=== PATIENT | female | born 1995 | race Asian ===

== ENCOUNTER 2021-01-30 10:44 | Emergency (ER) | payer OTHER ==
[~2021-01-30] VITALS: Ht 154.9 cm; Wt 47.6 kg
[2021-01-30 12:28] LABS: BASOPHILS 0.4 % (0.0-2.0); EOSINOPHILS 0.9 % (0.0-3.0); HEMOGLOBIN 13.4 gm/dL (12.0-15.0); RDW 13.6 % (10.5-14.5)
[2021-01-30 12:30] LABS: HEMATOCRIT 39.4 % (37.0-47.0); LYMPHOCYTES 20.7 % (24.0-44.0); MCH 32.1 pg (26.0-34.0); MCV 94.3 fL (80.0-100.0); MONOCYTES 7.9 % (1.0-8.0); PLATELET COUNT 332 thou/uL (150-400); POLYS 70.1 % (36.0-66.0); RBC 4.18 mil/uL (4.20-5.00); WBC 8.6 thou/uL (4.0-11.0)
[2021-01-30 12:56] LABS: CREATININE 0.6 mg/dL (0.6-1.0)
[2021-01-30 12:57] LABS: URINE BILIRUBIN NEGATIVE (Negative); URINE BLOOD 1+ (Negative); URINE CLARITY CLEAR; URINE COLOR YELLOW; URINE GLUCOSE-RANDOM* NEGATIVE (Negative); URINE KETONES NEGATIVE (Negative); URINE LEUKOCYTES-REFLEX TRACE (Negative); URINE NITRITE-REFLEX NEGATIVE (Negative); URINE PROTEIN (DIPSTICK) NEGATIVE (Negative); URINE UROBILINOGEN 0.2 E.U./dl (0.2-1.0)
[2021-01-30 13:01] VITALS: BP 106/61
[2021-01-30 13:05] LABS: ALBUMIN 3.7 g/dL (3.4-5.0); TOTAL BILIRUBIN 0.4 mg/dL (0.2-1.0); TOTAL PROTEIN 7.5 g/dL (6.4-8.2)
[2021-01-30 13:10] LABS: AMORPHOUS URATES Few /LPF (None Seen); BACTERIA-REFLEX 1-9 Few /HPF (None Seen); CASTS None Seen /LPF (None Seen); SQUAMOUS >10 Many /LPF (0-3); URINE RBC 1-2 Rare /HPF (NONE SEEN); URINE WBC-REFLEX None Seen /HPF (0-5)
[2021-01-30] MEDS ORDERED: FLAGYL500 M1 PO (15:27)
== END 2021-01-30 16:02 | disposition home or self-care (01) ==
LOC: ER 10:44
PROVIDERS: Physician Assistant
DX: O20.0 Threatened abortion (principal); O23.591 Infection of other part of genital tract in pregnancy, first trimester